=== PATIENT | female | born 1985 | race Two or more races ===

== ENCOUNTER 2020-04-19 14:17 | Inpatient (IN) | payer OTHER ==
[~2020-04-19] VITALS: Ht 157.5 cm; Wt 66.6 kg
[2020-04-19] VITALS (7 sets, daily range): BP systolic 111–145; BP diastolic 63–87
[2020-04-19 15:22] LABS: Albumin 3.6 g/dL (3.4-5.0); Calcium 8.7 mg/dL (8.5-10.1); Potassium 3.9 mmol/L (3.5-5.1)
[2020-04-19 15:24] LABS: White Blood Cell 4.2 10^3/uL (4.4-10.8)
[2020-04-19 15:26] LABS: BUN/Creatinine Ratio 20.5; Bilirubin, Total 0.3 mg/dL (0.2-1.0)
[2020-04-19 15:27] LABS: Hematocrit 14.4 % (36.0-46.0); Mean Corpuscular Hgb Conc. 27.4 g/dL (32.0-36.0); Platelet Count (auto) 408 10^3/uL (140-450); Red Blood Cells 2.61 10^6/uL (4.0-5.20)
[2020-04-19 15:31] LABS: Band Neutrophils % (manual) 0; Basophils % (manual) 0 (0.0-2.0); Blast Cells 0; Hemoglobin 3.9 g/dL (12.2-16.2); Metamyelocytes % 0; Myelocytes % 0; Promyelocytes % 0; Reactive Lymphocytes 0
[2020-04-19 15:45] LABS: INR 1.09 (0.9-1.15); Partial Thromboplastin Time 23.1 sec (23.0-31.2)
[2020-04-19] MEDS ORDERED: SODIUM CHLORIDE 0.9% 1,000 ML IV ONE (16:00)
[2020-04-19] MEDS ORDERED: HYDROcodone-ACET 5/325MG TAB PO PRN (16:00)
[2020-04-19] MEDS ORDERED: MORPHINE SULF INJ 2 MG/ML SYRINGE 1ML IV PRN ×2 (16:00)
[2020-04-19] MEDS ORDERED: NITROGLYCERIN 0.4 MG SL TAB SL PRN (16:00)
[2020-04-19] MEDS ORDERED: ACETAMINOPHEN 500 MG TAB PO PRN (16:00)
[2020-04-19] MEDS ORDERED: ONDANSETRON HCL 4 MG/2 ML VIAL IV PRN (16:00)
[2020-04-19 16:49] LABS: Lymphocytes % (manual) 36 (10.0-50.0); Monocytes % (manual) 3 (0-12)
[2020-04-19 16:50] LABS: Eosinophils % (manual) 3 (0-7)
[2020-04-19] MEDS ORDERED: FERR-7 PO (17:00)
[2020-04-19] MEDS: FAMOTIDINE 20 MG TAB PO SCH (18:31)
[2020-04-19 19:59] LABS: % Iron Saturation 2.1 % (15-50)
[2020-04-19 20:05] LABS: Folate (Folic Acid) 12.19 ng/mL (5.38-24)
[2020-04-19 21:17] LABS: Urine Bacteria NONE SEEN /hpf (None Seen); Urine Blood Negative /uL (Negative); Urine Specific Gravity 1.006 (1.001-1.035); Urine WBC <1 /hpf (0 - 5)
[2020-04-19] MEDS ORDERED: PANTOPRAZOLE 40 MG/10 ML VIAL INJ IV SCH (22:00)
[2020-04-20 00:01] VITALS: BP 130/86
[2020-04-20 00:37] VITALS: BP 130/86
[2020-04-20 01:01] VITALS: BP 126/75
[2020-04-20 08:00] VITALS: BP 141/91
[2020-04-20 08:11] LABS: Basophils # (auto) 0 10 ^3/uL (0-0.2); Lymphocytes # (auto) 1.6 10 ^3/uL (0.4-5.4); Monocytes # (auto) 0.5 10 ^3/uL (0-1.3)
[2020-04-20 08:13] LABS: Basophils % (auto) 0.8 % (0.0-2.0); Eosinophils # (auto) 0.2 10 ^3/uL (0-0.8); Hematocrit 23.6 % (36.0-46.0); Hemoglobin 7.3 g/dL (12.2-16.2); Lymphocytes % (auto) 33.9 % (10.0-50.0); Mean Corpuscular Hemoglobin 20.3 pg (28.0-32.0); Mean Corpuscular Volume 65.5 fL (80.0-100.0); Monocytes % (auto) 9.8 % (0.0-12.0); Neutrophils # (auto) 2.5 10 ^3/uL (1.6-8.6); Neutrophils % (auto) 51.5 % (37.0-80.0); Nucleated Red Blood Cells % 0.4 %; Platelet Count (auto) 407 10^3/uL (140-450); White Blood Cell 4.9 10^3/uL (4.4-10.8)
[2020-04-20 08:15] LABS: Red Cell Distribution Width 34.5 % (11.8-14.3)
[2020-04-20 08:28] LABS: BUN/Creatinine Ratio 12.3; Calcium 9.2 mg/dL (8.5-10.1); Potassium 4.5 mmol/L (3.5-5.1)
[2020-04-20] MEDS: FAMOTIDINE 20 MG TAB PO SCH (09:08)
[2020-04-20] MEDS ORDERED: FAMOTIDINE 20 MG TAB PO SCH (10:00)
[2020-04-20 16:00] VITALS: BP 141/96
[2020-04-20] MEDS: FERROUS SULFATE 325 MG TAB PO SCH (17:46)
[2020-04-20] MEDS: ASCORBIC ACID 500 MG TAB PO SCH (22:20)
[2020-04-21] VITALS: BP 128/75
[2020-04-21 07:37] LABS: Basophils # (auto) 0 10 ^3/uL (0-0.2); Monocytes # (auto) 0.6 10 ^3/uL (0-1.3); Red Blood Cells 4.17 10^6/uL (4.0-5.20)
[2020-04-21 07:41] LABS: Eosinophils # (auto) 0.1 10 ^3/uL (0-0.8); Eosinophils % (auto) 3.3 % (0.0-7.0); Hematocrit 27.2 % (36.0-46.0); Hemoglobin 8.4 g/dL (12.2-16.2); Lymphocytes # (auto) 1.8 10 ^3/uL (0.4-5.4); Lymphocytes % (auto) 41.2 % (10.0-50.0); Mean Corpuscular Hemoglobin 20.2 pg (28.0-32.0); Mean Corpuscular Hgb Conc. 30.9 g/dL (32.0-36.0); Mean Corpuscular Volume 65.4 fL (80.0-100.0); Monocytes % (auto) 12.9 % (0.0-12.0); Neutrophils # (auto) 1.8 10 ^3/uL (1.6-8.6); Neutrophils % (auto) 41.6 % (37.0-80.0); Nucleated Red Blood Cells % 0.4 %; Platelet Count (auto) 443 10^3/uL (140-450); White Blood Cell 4.3 10^3/uL (4.4-10.8)
[2020-04-21 08:00] VITALS: BP 126/66
[2020-04-21 08:13] LABS: Red Cell Distribution Width 35.4 % (11.8-14.3)
[2020-04-21] MEDS: FERROUS SULFATE 325 MG TAB PO SCH ×2 (08:30→09:51)
[2020-04-21] MEDS: ASCORBIC ACID 500 MG TAB PO SCH (09:50)
[2020-04-21] MEDS: FAMOTIDINE 20 MG TAB PO SCH (09:51)
[2020-04-21] MEDS ORDERED: ZINC SULFATE 220mg CAP or TAB PO SCH (10:00)
[2020-04-21] MEDS ORDERED: CHOLECALCIFEROL (VITD3) 2,000 UNIT CAP PO SCH (10:00)
[2020-04-21] MEDS ORDERED: ERGOCALCIFEROL 50,000 UNIT(1.25MG) CAP PO SCH (10:30)
[2020-04-21] MEDS ORDERED: ASCO100076 PO (12:18)
[2020-04-21] MEDS ORDERED: ZINC220T6 PO (12:18)
[2020-04-21] MEDS ORDERED: CHOL1CAP47 PO (12:18)
[2020-04-21] MEDS ORDERED: PANT40TA2 PO (12:18)
[2020-04-21] MEDS ORDERED: DOCU-94 PO (12:20)
[2020-04-21 13:32] VITALS: BP 121/62
== END 2020-04-21 15:10 | disposition home or self-care (01) | DRG 253 ==
LOC: ER 14:17 → TELE 14:18 → TELE-WESTW 04-20 06:25
PROVIDERS: ADMIT Nurse Practitioner Acute Care; ATTEND Internal Medicine
PROC: 30233N1 Transfusion of Nonautologous Red Blood Cells into Peripheral Vein, Percutaneous Approach (ICD-10-PCS; principal; 2020-04-19)
DX: K92.2 Gastrointestinal hemorrhage, unspecified (principal); U07.1 COVID-19; R55 Syncope and collapse; K59.00 Constipation, unspecified; D72.819 Decreased white blood cell count, unspecified; E55.9 Vitamin D deficiency, unspecified; Z91.19 Patient's noncompliance with other medical treatment and regimen; E28.2 Polycystic ovarian syndrome; D50.0 Iron deficiency anemia secondary to blood loss (chronic)
CPT/HCPCS: 36415; 36430; 71045; 80048; 80053; 81001; 82270; 82306; 82607; 82746; 83540; 83550; 84425; 84702; 85007; 85025; 85027; 85610; 85730; 86850; 86900; 86901; 86920; 87426; 96360; 99291; G0378